=== PATIENT | female | born 1930 | race Caucasian/White ===

== ENCOUNTER → 2016-09-14 14:09 | Outpatient (CLI) | payer MEDICARE, OTHER ==
[2015-05-13 13:35] VITALS: BMI 19.8
[~2016-09-14 14:09] MED LIST: BAYER CHEWABLE81 MG PO; FERROUS SULFAT325 MG PO; FOLIC ACID1 MG PO; HYDROCHLOROTHIA25 MG PO; NEURONTIN600 MG PO; OYSCO 500+D TAB1 TAB PO; SKELAXIN800 MG PO; TOPROL XL100 MG PO; VITAMIN D2000 UNIT PO
== END | disposition home or self-care (01) ==
LOC: D.MRI 14:09
DX: R29.810 Facial weakness (principal)

== ENCOUNTER 2017-03-02 09:09 | Emergency (ER) | payer MEDICARE, OTHER ==
[2015-05-13 13:35] VITALS: BMI 19.8
== END 2017-03-02 15:01 | disposition home or self-care (01) ==
LOC: D.ER 09:09
DX: S32.511A Fracture of superior rim of right pubis, initial encounter for closed fracture (principal); W01.0XXA Fall on same level from slipping, tripping and stumbling without subsequent striking against object, initial encounter; Y93.89 Activity, other specified; Y92.89 Other specified places as the place of occurrence of the external cause; I10 Essential (primary) hypertension